=== PATIENT | male | born 1980 | race Caucasian/White ===

== ENCOUNTER 2017-03-04 17:18 | Emergency (ER) | payer SELFPAY ==
[2017-03-04 17:48] VITALS: BP 134/81
--- NOTE | 2017-03-04 19:23 | ER Document Report ---
ED Medical Screen (RME) - General Chief Complaint: Arm Problem Stated Complaint: RIGHT ARM PAIN W/ SWELLING Time Seen by Provider: 03/04/17 19:20 Mode of Arrival: Ambulatory Information source: Patient Notes: 36-year-old male presents to ED for swelling right arm states this started 3 days when he used heroin last in the right arm. Says he has been feeling sick nauseated stomach hurting no fever but feels like he does when he has an infection. He does have a swollen tender area to the right upper arm where he last injection himself thinks he might have missed the pain. He states he was "clean that he fell off the wagon " I have greeted and performed a rapid initial assessment of this patient. A comprehensive ED assessment and evaluation of the patient, analysis of test results and completion of medical decision making process will be conducted by an additional ED providers. TRAVEL OUTSIDE OF THE [place] IN LAST 30 DAYS: No - Related Data Allergies/Adverse Reactions: Penicillins Allergy (Verified 03/04/17 17:44) Past Medical History - Social History Chew tobacco use (# tins/day): No Frequency of alcohol use: None Drug Abuse: Heroin, Prescription drugs Renal/ Medical History: Denies: Hx Peritoneal Dialysis Physical Exam - Vital signs Vitals: Temp Pulse Resp BP Pulse Ox 98.8 F 78 18 134/81 H 98 03/04/17 17:45 03/04/17 17:45 03/04/17 17:45 03/04/17 17:45 03/04/17 17:45 Course - Vital Signs Vital signs: Temp Pulse Resp BP Pulse Ox 98.8 F 78 18 134/81 H 98 03/04/17 17:45 03/04/17 17:45 03/04/17 17:45 03/04/17 17:45 03/04/17 17:45
[2017-03-04 20:03] LABS: ABSOLUTE BASOPHILS # (AUTO) 0.1 10^3/uL (0.0-0.2); ABSOLUTE EOSINOPHILS # (AUTO) 0.2 10^3/uL (0.0-0.6); ABSOLUTE LYMPHOCYTES (AUTO) 2.6 10^3/uL (0.5-4.7); ABSOLUTE MONOCYTES (AUTO) 0.6 10^3/uL (0.1-1.4); ABSOLUTE NEUT (AUTO) 7.6 10^3/uL (1.7-8.2); BASOPHILS % (AUTO) 0.8 % (0-2); EOSINOPHILS % (AUTO) 1.4 % (0-6); HEMATOCRIT 45.7 % (37.9-51.0); HGB HCT DIFFERENCE -0.7; LYMPHOCYTES % (AUTO) 23.6 % (13-45); MEAN CORPUSCULAR HEMOGLOBIN 30.3 pg (27.0-33.4); MEAN CORPUSCULAR HGB CONC 32.8 g/dL (32.0-36.0); MEAN CORPUSCULAR VOLUME 92 fl (80-97); MONOCYTES % (AUTO) 5.1 % (3-13); RED BLOOD COUNT 4.95 10^6/uL (4.35-5.55); SEGMENTED NEUTROPHILS % (AUTO) 69.1 % (42-78); WHITE BLOOD COUNT 11.1 10^3/uL (4.0-10.5)
[2017-03-04 20:28] LABS: APPEARANCE,URINE CLEAR; BILIRUBIN,URINE NEGATIVE (NEGATIVE); GLUCOSE, URINE NEGATIVE (NEGATIVE); KETONES,URINE NEGATIVE (NEGATIVE); LEUKOCYTE ESTERASE,URINE NEGATIVE (NEGATIVE); NITRITE,URINE NEGATIVE (NEGATIVE); PROTEIN,URINE NEGATIVE (NEGATIVE); URINE SPECIFIC GRAVITY 1.003; UROBILINOGEN,URINE NEGATIVE mg/dL (<2.0)
[2017-03-04 20:29] LABS: ALANINE AMINOTRANSFERASE 85 U/L (21-72); ALBUMIN 4.8 g/dL (3.5-5.0); ALKALINE PHOSPHATASE 70 U/L (38-126); ANION GAP 12 (5-19); ASPARTATE AMINO TRANSFERASE 53 U/L (17-59); BILIRUBIN,DIRECT 0.4 mg/dL (0.0-0.4); BILIRUBIN,TOTAL 0.6 mg/dL (0.2-1.3); BLOOD UREA NITROGEN 13 mg/dL (7-20); CALCIUM 9.6 mg/dL (8.4-10.2); CARBON DIOXIDE 28 mmol/L (22-30); CHLORIDE 100 mmol/L (98-107); CREATININE RESULT 0.84 mg/dL (0.52-1.25); GLUCOSE 96 mg/dL (75-110); POTASSIUM 4.4 mmol/L (3.6-5.0); SODIUM 139.9 mmol/L (137-145); TOTAL PROTEIN 8.2 g/dL (6.3-8.2)
[2017-03-04 20:44] LABS: URINE BARBITURATES SCREEN NEGATIVE; URINE METHADONE SCREEN NEGATIVE; URINE OPIATES LOW UNCONFIRMED POSITIVE; URINE PHENCYCLIDINE SCREEN NEGATIVE
--- NOTE | 2017-03-04 22:16 | ER Document Report ---
ED General - General Mode of Arrival: Ambulatory TRAVEL OUTSIDE OF THE [place] IN LAST 30 DAYS: No <EMILY EVERETT - Last Filed: 03/05/17 04:04> <RONNELL ZAMORA - Last Filed: 03/05/17 04:29> - General Chief Complaint: Arm Problem Stated Complaint: RIGHT ARM PAIN W/ SWELLING Time Seen by Provider: 03/04/17 19:20 Notes: Patient is a 36 year old male presenting to the emergency department for a problem to his right upper extremity. Patient was injecting heroine to this arm on Saturday during a relapse. Patient states he did heroine x1 year and then was clean x3 years until Saturday. Patient states his arm is red, hot, painful, and somewhat swollen. Patient also complains of some chills, shakes, nausea, and abdominal pain. Patient denies any use of pills or EtOH. Patient is allergic to penicillin. (EMILY EVERETT) - Related Data Allergies/Adverse Reactions: Penicillins Allergy (Verified 03/04/17 17:44) Past Medical History - General Information source: Patient - Social History Smoking Status: Current Every Day Smoker Chew tobacco use (# tins/day): No Frequency of alcohol use: None Drug Abuse: Heroin, Prescription drugs Family History: None Patient has suicidal ideation: No Patient has homicidal ideation: No Renal/ Medical History: Denies: Hx Peritoneal Dialysis <EMILY EVERETT - Last Filed: 03/05/17 04:04> Review of Systems - Review of Systems Constitutional: See HPI EENT: No symptoms reported Cardiovascular: No symptoms reported Respiratory: No symptoms reported Gastrointestinal: No symptoms reported Genitourinary: No symptoms reported Male Genitourinary: No symptoms reported Musculoskeletal: See HPI Skin: No symptoms reported Hematologic/Lymphatic: No symptoms reported Neurological/Psychological: See HPI -: Yes All other systems reviewed and negative <EMILY EVERETT - Last Filed: 03/05/17 04:04> Physical Exam - Vital signs Interpretation: Normal <EMILY EVERETT - Last Filed: 03/05/17 04:04> <RONNELL ZAMORA - Last Filed: 03/05/17 04:29> - Vital signs Vitals: Temp Pulse Resp BP Pulse Ox 98.8 F 78 18 134/81 H 98 03/04/17 17:45 03/04/17 17:45 03/04/17 17:45 03/04/17 17:45 03/04/17 17:45 - Notes Notes: GENERAL: Alert, interacts well. Mild distress. HEAD: Normocephalic, atraumatic. EYES: Appear normal. Pupils equal, round, and reactive to light. ENT: Moist mucus membranes, tongue midline. NECK: Full range of motion. Supple. Trachea midline. LUNGS: Clear to auscultation bilaterally, no wheezes, rales, or rhonchi. No respiratory distress. HEART: Regular rate and rhythm. No murmurs, gallops, or rubs. ABDOMEN: Soft, non-tender. Non-distended. Normal bowel sounds. EXTREMITIES: Moves all 4 extremities spontaneously. Normal strength. No tenderness to the right forearm, warm to touch. NEUROLOGICAL: Alert and oriented x3. Normal speech. No focal neurological deficits. GSC 15. PSYCH: Normal affect, normal mood. SKIN: Warm, dry, normal turgor. (EMILY EVERETT) Course - Laboratory Result Diagrams: 03/04/17 19:50 03/04/17 19:50 - Consults Dr. Roberts Time consulted: 00:30 <EMILY EVERETT - Last Filed: 03/05/17 04:04> - Laboratory Result Diagrams: 03/04/17 19:50 03/04/17 19:50 <RONNELL ZAMORA - Last Filed: 03/05/17 04:29> - Re-evaluation Re-evalutation: 03/05/17 01:19 Patient presents emerged, red hot swollen arm systemically feels sick like he is going to throw up and body aches and fever. He last used heroin reinjected into that right forearm on Saturday. He says he does not feel like he is having any withdrawal symptoms no seizures no tachycardia her right arm is severely swollen cellulitic in nature no crepitus necrosis good pulses and perfusion IV CT does not show any abscess or cellulitis.. Therefore I did not do a surgical consultation did IV antibiotics update his tetanus spoke with Dr. Roberts and admit for further inpatient treatment of cellulitis. 03/05/17 01:24 03/05/17 01:36 Nurse stated patient went running out of his room bolted in the lobby security saw him getting into a vehicle. We were able to ascertain going back into the room that he had pulled the IV out before he left. (RONNELL ZAMORA) - Vital Signs Vital signs: Temp Pulse Resp BP Pulse Ox 98.8 F 78 18 134/81 H 98 03/04/17 17:45 03/04/17 17:45 03/04/17 17:45 03/04/17 17:45 03/04/17 17:45 - Laboratory Laboratory results interpreted by me: 03/04/17 03/04/17 19:50 19:50 WBC 11.1 H ALT 85 H - Consults Dr. Roberts Reason for consultation: 03/05/2017 00:[address] Roberts for possible admission; he will call back. 03/05/17 01:[address] Roberts, he took another admission and will call back when he is ready to take this admission. (EMILY EVERETT) Discharge <EMILY EVERETT - Last Filed: 03/05/17 04:04> - Discharge Admitting Provider: Hospitalist Unit Admitted: Medical Floor <RONNELL ZAMORA - Last Filed: 03/05/17 04:29> - Discharge Clinical Impression: acute cellulitis forearm, heroin usuage, elopement Condition: Stable Disposition: ELOPED Scribe Attestation: 03/05/17 01:19 I personally performed the services described in the documentation reviewed the documentation recorded by my scribe in my presence and it accurately and completely records my words and actions (RONNELL ZAMORA) Scribe Documentation - Scribe Written by Scribe:: Edy Lima 03/05/17 1:13 acting as scribe for :: Pawan <EMILY EVERETT - Last Filed: 03/05/17 04:04>
[2017-03-04] MEDS ORDERED: CLINDAMYCIN PHOSPHATE INJ 300 MG/2 ML SDV IM ONE (22:18)
--- NOTE | 2017-03-05 00:13 | RADIOLOGY REPORT (SQ) ---
EXAM DESCRIPTION: CT RT UPPER EXTREMITY WITH COMPLETED DATE/TIME: 03/04/2017 11:54 pm REASON FOR STUDY: heroin injection rule out abscess COMPARISON: None. TECHNIQUE: Axial imaging performed through the right upper extremity with contrast and with reformat alma coronal and sagittal imaging windowed for bone and soft tissues. Images saved to PACS. 3D IMAGING: Were 3D images as MIP, SSD, or volume rendering performed at the work station? No. All CT scanners at this facility use dose modulation, iterative reconstruction, and/or weight based d osing when appropriate to reduce radiation dose to as low as reasonably achievable (ALARA). [facility]: Dose Right [facility]: CareDose [facility]: Dose Right [facility]: Teradose 4D [facility]: [email or web address] CONTRAST DOSE: 76 mL Isovue 370. RENAL FUNCTION: BUN 13 creatinine 0.84. LIMITATIONS: None. RADIATION DOSE: Up-to-date CT equipment and radiation dose reduction techniques were employed. CTDIv ol: 2.6 mGy. DLP: 73 mGy-cm. mGy. FINDINGS: SOFT TISSUES: There is diffuse edema and fluid throughout the subcutaneous fatty tissues o f the forearm. A focal fluid collection is not present. BONES: No acute fracture. No dislocation. No bony lesions. MINERALIZATION: Normal. OTHER: No other significant finding. IMPRESSION: DIFFUSE EDEMA/INFLAMMATION THROUGHOUT THE SUBCUTANEOUS FATTY TISSUES OF THE FOREARM. DI FFUSE FLUID IS PRESENT ALTHOUGH A DISCRETE FOCAL ABSCESS IS NOT IDENTIFIED. TECHNICAL DOCUMENTATION: JOB ID: [id number] Quality ID # [id number]: Final reports with documentation of one or more dose reduction techniques (e.g., Au tomated exposure control, adjustment of the mA and/or kV according to patient size, use of iterative reconstruction technique) 2010 [employer]- All Rights Reserved
[2017-03-05] MEDS ORDERED: CLINDAMYCIN PHOSPHATE INJ 300 MG/2 ML SDV IV ONE (00:57)
[2017-03-05] MEDS ORDERED: TETANUS IMMUNE GLOBULIN INJ/PF 250 UNIT DISP.SYRIN IM ONE (01:27)
--- NOTE | 2017-03-05 09:02 | Progress Note ---
Provider Note Provider Note: March 05, 2017: 1:53 AM, I was notified by telephone by emergency room charge nurse Preethi that patient had already physically left the emergency room and had left in a vehicle. This occurred approximately 1:36 AM. Emergency room physician's note reviewed. Again, prior to my ever seeing the patient or being notified that he was leaving the ER, he had already physically left the emergency room and had left in a reported hurry in a vehicle.
== END 2017-03-05 01:43 | disposition left against medical advice (07) ==
LOC: ER 17:18 → EH 03-05 01:29 → UNDOADMIN 03-05 01:29 → ER 03-05 01:43 → UNDODISIN 03-05 02:02
DX: L03.113 Cellulitis of right upper limb (principal); F19.90 Other psychoactive substance use, unspecified, uncomplicated; M79.601 Pain in right arm; F17.200 Nicotine dependence, unspecified, uncomplicated; R11.0 Nausea; M79.1 Myalgia; R50.9 Fever, unspecified; Z88.0 Allergy status to penicillin
CPT/HCPCS: 36415; 80053; 80307; 81001; 85025; 87040; 87077; 99281

== ENCOUNTER 2017-03-05 15:18 | Inpatient (IN) | payer OTHER ==
[2017-03-05] MEDS ORDERED: OXYCODONE-ACETAMINOPHEN 5-325 MG TABLET PO ONE (15:53)
--- NOTE | 2017-03-05 15:54 | ER Document Report ---
ED Medical Screen (RME) - General Chief Complaint: Arm Problem Stated Complaint: ABSCESS/RIGHT ARM Time Seen by Provider: 03/05/17 15:51 Information source: Patient Notes: Right arm pain and swelling from an injection site according to the patient starting Saturday. He was seen here yesterday supposedly and had a CT scan of his arm performed. He states he did not wait for the results as he had an appointment he had get to. Patient states that he was told to try to admit him yesterday. He denies any fevers or vomiting. TRAVEL OUTSIDE OF THE [place] IN LAST 30 DAYS: No - Related Data Allergies/Adverse Reactions: Penicillins Allergy (Verified 03/05/17 15:21) Past Medical History Renal/ Medical History: Denies: Hx Peritoneal Dialysis Physical Exam - Vital signs Vitals: Temp Pulse Resp BP Pulse Ox 98.5 F 89 18 120/72 96 03/05/17 15:22 03/05/17 15:22 03/05/17 15:22 03/05/17 15:22 03/05/17 15:22 Course - Vital Signs Vital signs: Temp Pulse Resp BP Pulse Ox 98.5 F 89 18 120/72 96 03/05/17 15:22 03/05/17 15:22 03/05/17 15:22 03/05/17 15:22 03/05/17 15:22
[2017-03-05] MEDS ORDERED: VANCOMYCIN HCL INJ 1000 MG VIAL IV ONE (15:55)
--- NOTE | 2017-03-05 17:26 | ER Document Report ---
ED Extremity Problem, Upper - General Mode of Arrival: Ambulatory Information source: Patient TRAVEL OUTSIDE OF THE [place] IN LAST 30 DAYS: No - HPI Similar symptoms previously: Yes Recently seen / treated by doctor: Yes - came last night for this, LWBS <CALE WEBER - Last Filed: 03/05/17 22:21> <BAM DOHERTY - Last Filed: 03/05/17 23:29> - General Chief Complaint: Arm Problem Stated Complaint: ABSCESS/RIGHT ARM Time Seen by Provider: 03/05/17 15:51 Notes: Patient is a 36-year-old male that presents to the emergency department today with complaints of an abscess to his right arm. Patient states he is an IV drug user, and he states he has been injecting heroin in this area. Patient denies any elbow pain or trauma to the area. (CALE WEBER) - Related Data Allergies/Adverse Reactions: Penicillins Allergy (Verified 03/05/17 15:21) Home Medications: Current Home Medications No Home Medications 03/05/17 [History] Past Medical History - General Information source: Patient - Social History Smoking Status: Current Every Day Smoker Cigarette use (# per day): Yes Frequency of alcohol use: None Drug Abuse: Heroin Lives with: Family Family History: Reviewed & Not Pertinent Patient has suicidal ideation: No Patient has homicidal ideation: No - Medical History Medical History: Negative Past Surgical History: Reports: Hx Orthopedic Surgery - Right hand tendon sx <CALE WEBRE - Last Filed: 03/05/17 22:21> Review of Systems - Review of Systems Constitutional: No symptoms reported EENT: No symptoms reported Cardiovascular: No symptoms reported Respiratory: No symptoms reported Gastrointestinal: No symptoms reported Genitourinary: No symptoms reported Male Genitourinary: No symptoms reported Musculoskeletal: See HPI, Other - right upper extremity swelling, and elbow pain Skin: No symptoms reported Hematologic/Lymphatic: No symptoms reported Neurological/Psychological: No symptoms reported -: Yes All other systems reviewed and negative <CALE WEBER - Last Filed: 03/05/17 22:21> Physical Exam <CALE WEBER - Last Filed: 03/05/17 22:21> <BAM DOHERTY - Last Filed: 03/05/17 23:29> - Vital signs Vitals: Temp Pulse Resp BP Pulse Ox 98.5 F 89 18 120/72 96 03/05/17 15:22 03/05/17 15:22 03/05/17 15:22 03/05/17 15:22 03/05/17 15:22 - Notes Notes: Physical Exam: General: Alert, appears well. HEENT: Normocephalic. Atraumatic. PERRL. Extraocular movements intact. Oropharynx clear. Neck: Supple. Non-tender. Respiratory: No respiratory distress. Clear and equal breath sounds bilaterally. Cardiovascular: Regular rate and rhythm. Abdominal: Normal Inspection. Non-tender. No distension. Normal Bowel Sounds. Back: Non-tender. No deformity or step off. Extremities: Moves all four extremities. Upper extremities: Swelling, induration, and tenderness with palpation to ulnar portion of right elbow. Full ROM of elbow and wrist . Lower extremities: Normal inspection. No edema. Normal ROM. Neurological: Normal cognition. AAOx4. Normal speech. Psychological: Normal affect. Normal Mood. Skin: See upper extremity exam (CALE WEBER) Course - Laboratory Result Diagrams: 03/05/17 18:15 03/05/17 18:15 <CALE WEBER - Last Filed: 03/05/17 22:21> - Laboratory Result Diagrams: 03/05/17 18:15 03/05/17 18:15 - Diagnostic Test Radiology reviewed: Reports reviewed <BAM DOHERTY - Last Filed: 03/05/17 23:29> - Re-evaluation Re-evalutation: Patient is a 36-year-old male who comes in complaining of arm pain. Patient has a area of induration with surrounding cellulitis. Surgery has been consulted. Will be admitted for IV antibiotics and probable drainage. No acute findings on CT from last night. Patient is agreeable to this plan. Patient had poor veins peripherally. EJ placed on the right side. Stable at time of admission. (BAM DOHERTY) - Vital Signs Vital signs: Temp Pulse Resp BP Pulse Ox 98.2 F 89 16 124/68 100 03/05/17 22:35 03/05/17 22:35 03/05/17 22:35 03/05/17 22:35 03/05/17 22:35 - Laboratory Laboratory results interpreted by me: 03/05/17 18:15 Carbon Dioxide 31 H Discharge <CALE WEBER - Last Filed: 03/05/17 22:21> - Discharge Admitting Provider: Surgicalist - [facility] Unit Admitted: Surgical Floor <BAM DOHERTY - Last Filed: 03/05/17 23:29> - Discharge Clinical Impression: Right arm cellulitis Condition: Stable Disposition: ADMITTED INPATIENT Scribe Attestation: 03/05/17 23:29 I personally performed the services described in the documentation, reviewed and edited the documentation which was dictated to the scribe in my presence, and it accurately records my words and actions. (BAM DOHERTY) Scribe Documentation - Scribe Written by Edy:: Edy Montiel, 03/05/2017 194 acting as scribe for :: Ara <CALE WEBER - Last Filed: 03/05/17 22:21>
[2017-03-05] MEDS ORDERED: CEFEPIME 1 GM/D5W RTU 50 ML IV ONE (17:54)
[2017-03-05 18:27] LABS: ABSOLUTE BASOPHILS # (AUTO) 0.1 10^3/uL (0.0-0.2); ABSOLUTE EOSINOPHILS # (AUTO) 0.3 10^3/uL (0.0-0.6); ABSOLUTE LYMPHOCYTES (AUTO) 2.4 10^3/uL (0.5-4.7); ABSOLUTE MONOCYTES (AUTO) 0.5 10^3/uL (0.1-1.4); ABSOLUTE NEUT (AUTO) 5.7 10^3/uL (1.7-8.2); BASOPHILS % (AUTO) 0.7 % (0-2); EOSINOPHILS % (AUTO) 3.4 % (0-6); HEMATOCRIT 41.2 % (37.9-51.0); HGB HCT DIFFERENCE 0.8; LYMPHOCYTES % (AUTO) 26.9 % (13-45); MEAN CORPUSCULAR HEMOGLOBIN 30.9 pg (27.0-33.4); MEAN CORPUSCULAR VOLUME 91 fl (80-97); MONOCYTES % (AUTO) 6.1 % (3-13); RED BLOOD COUNT 4.53 10^6/uL (4.35-5.55); RED CELL DISTRIBUTION WIDTH 12.9 % (11.5-14.0); SEGMENTED NEUTROPHILS % (AUTO) 62.9 % (42-78)
[2017-03-05] MEDS ORDERED: LEVOFLOXACIN 750 MG/D5W RTU 150 ML IV ONE (18:36)
[2017-03-05] MEDS ORDERED: NICOTINE 21 MG/24 HR PATCH.TD24 TD ONE (18:37)
[2017-03-05 18:43] LABS: PARTIAL THROMBOPLASTIN TIME 31.9 SEC (23.5-35.8); PROTHROMBIN TIME 12.3 SEC (11.4-15.4)
[2017-03-05 18:47] LABS: ANION GAP 8 (5-19); BLOOD UREA NITROGEN 15 mg/dL (7-20); CALCIUM 9.2 mg/dL (8.4-10.2); CARBON DIOXIDE 31 mmol/L (22-30); CHLORIDE 99 mmol/L (98-107); CREATININE RESULT 0.91 mg/dL (0.52-1.25); GLUCOSE 102 mg/dL (75-110); POTASSIUM 4.4 mmol/L (3.6-5.0); SODIUM 137.6 mmol/L (137-145)
[2017-03-05] MEDS ORDERED: NORMAL SALINE 1000 ML 1,000 ML IV PRN (18:49)
[2017-03-05] MEDS ORDERED: ACETAMINOPHEN 325 MG TABLET PO PRN (18:49)
[2017-03-05] MEDS ORDERED: ONDANSETRON HCL INJ/PF 4 MG/2 ML SDV IV PRN (18:49)
[2017-03-05] MEDS ORDERED: CEFEPIME HCL 1 GM in DEXTROSE 5%-WATER 50 ML IV ONE (19:00)
[2017-03-05 19:35] LABS: APPEARANCE,URINE SLIGHTLY-CLOUDY; BILIRUBIN,URINE NEGATIVE (NEGATIVE); GLUCOSE, URINE NEGATIVE (NEGATIVE); KETONES,URINE TRACE mg/dL (NEGATIVE); LEUKOCYTE ESTERASE,URINE NEGATIVE (NEGATIVE); NITRITE,URINE NEGATIVE (NEGATIVE); PROTEIN,URINE 30 mg/dL (NEGATIVE); URINE SPECIFIC GRAVITY 1.033; UROBILINOGEN,URINE NEGATIVE mg/dL (<2.0)
[2017-03-05 19:49] LABS: URINE BARBITURATES SCREEN NEGATIVE; URINE METHADONE SCREEN NEGATIVE; URINE OPIATES LOW UNCONFIRMED POSITIVE; URINE PHENCYCLIDINE SCREEN NEGATIVE
[2017-03-05] MEDS ORDERED: VANCOMYCIN HCL INJ 1000 MG VIAL IV SCH (20:00)
[2017-03-05] MEDS: FAMOTIDINE INJ/PF 20 MG/2 ML SDV IV SCH (22:45)
[2017-03-06 05:54] LABS: ABSOLUTE EOSINOPHILS # (AUTO) 0.3 10^3/uL (0.0-0.6); ABSOLUTE LYMPHOCYTES (AUTO) 1.4 10^3/uL (0.5-4.7); ABSOLUTE MONOCYTES (AUTO) 0.4 10^3/uL (0.1-1.4); ABSOLUTE NEUT (AUTO) 4.1 10^3/uL (1.7-8.2); BASOPHILS % (AUTO) 0.7 % (0-2); EOSINOPHILS % (AUTO) 4.6 % (0-6); HEMATOCRIT 41.8 % (37.9-51.0); HEMOGLOBIN 14.3 g/dL (13.5-17.0); HGB HCT DIFFERENCE 1.1; LYMPHOCYTES % (AUTO) 22.7 % (13-45); MEAN CORPUSCULAR HGB CONC 34.2 g/dL (32.0-36.0); MEAN CORPUSCULAR VOLUME 91 fl (80-97); MONOCYTES % (AUTO) 6.6 % (3-13); RED BLOOD COUNT 4.61 10^6/uL (4.35-5.55); RED CELL DISTRIBUTION WIDTH 13.5 % (11.5-14.0); SEGMENTED NEUTROPHILS % (AUTO) 65.4 % (42-78); WHITE BLOOD COUNT 6.2 10^3/uL (4.0-10.5)
[2017-03-06 06:18] LABS: ANION GAP 7 (5-19); BLOOD UREA NITROGEN 14 mg/dL (7-20); CARBON DIOXIDE 30 mmol/L (22-30); CHLORIDE 105 mmol/L (98-107); CREATININE RESULT 0.87 mg/dL (0.52-1.25); GLUCOSE 105 mg/dL (75-110); POTASSIUM 4.4 mmol/L (3.6-5.0); SODIUM 142.1 mmol/L (137-145)
--- NOTE | 2017-03-06 07:18 | RADIOLOGY REPORT (SQ) ---
EXAM DESCRIPTION: U/S EXTREMITY NONVASCULAR COMP COMPLETED DATE/TIME: 03/06/2017 7:07 am REASON FOR STUDY: cellulitis right forearm; r/o abscess or fluid col COMPARISON: None. TECHNIQUE: Dynamic and static grayscale images acquired of the localized site of clinical concern an d recorded on PACS. Additional selected color Doppler and spectral images recorded. SITE OF CONCERN: Right forearm. LIMITATIONS: None. FINDINGS: SKIN AND SUBCUTANEOUS TISSUES: Marked edema in the subcutaneous tissues with heterogenous echogenicity and increased vascularity. Small subcutaneous fluid collection measuring 0.3 x 0.8 x 1. 3 cm. DEEP SOFT TISSUES/MUSCLES: No masses. No fluid collections. No edema. OTHER: No other significant finding. IMPRESSION: MARKED EDEMA AND HYPERVASCULARITY IN THE SUBCUTANEOUS SOFT TISSUES CONSISTENT WITH INFEC TION. SMALL FLUID COLLECTION PRESENT WHICH COULD REPRESENT AN EARLY ABSCESS. TECHNICAL DOCUMENTATION: JOB ID: [id number] [employer]- All Rights Reserved
[2017-03-06] MEDS ORDERED: PROPOFOL INJ 200 MG/20 ML VIAL IV ONE (09:46)
[2017-03-06] MEDS ORDERED: FENTANYL CITRATE INJ/PF 100 MCG/2 ML AMPUL ONE (09:46)
[2017-03-06] MEDS ORDERED: MIDAZOLAM 2 MG/2 ML INJ ONE (09:46)
[2017-03-06] MEDS ORDERED: NICOTINE 21 MG/24 HR PATCH.TD24 TD SCH (10:00)
[2017-03-06] MEDS ORDERED: BUPIVACAINE HCL 0.25 % INJ/PF (2.5 MG/1 ML) 30 ML VIAL ONE (10:41)
[2017-03-06] MEDS ORDERED: MEPERIDINE HCL/PF INJ 25 MG/1 ML DISP.SYRIN IV PRN (10:46)
[2017-03-06] MEDS ORDERED: FENTANYL CITRATE INJ/PF 100 MCG/2 ML AMPUL IV PRN ×3 (10:46)
[2017-03-06] MEDS ORDERED: OXYCODONE-ACETAMINOPHEN 5-325 MG TABLET PO PRN ×2 (10:46)
[2017-03-06] MEDS ORDERED: PROMETHAZINE HCL INJ 25 MG/1 ML VIAL IV PRN ×2 (10:46)
[2017-03-06] MEDS ORDERED: MORPHINE SULFATE 10 MG/ML INJ IV PRN ×2 (10:46→14:52)
[2017-03-06] MEDS ORDERED: DIPHENHYDRAMINE HCL 50 MG/ML VIAL IV PRN (10:46)
[2017-03-06] MEDS ORDERED: BUPIVACAINE HCL 0.25% /EPINEPHRINE INJ/PF 30 ML SDV ONE (10:53)
[2017-03-06] MEDS: FAMOTIDINE INJ/PF 20 MG/2 ML SDV IV SCH (14:40)
--- NOTE | 2017-03-06 14:44 | Operative Report ---
Operative Report Operative Report: left forearm abscess I&D PREOPERATIVE DIAGNOSIS: Left forearm abscess POSTOPERATIVE DIAGNOSIS: same OPERATION: Incision and drainage of left forearm abscess SURGEON: ESTEE BOB ANESTHESIA: Moderate Sedation - plus local COMPLICATIONS: none ESTIMATED BLOOD LOSS: minimal INTRAOPERATIVE FINDINGS: small abscess cavity PROCEDURE: see dictation
[2017-03-06] MEDS ORDERED: ACETAMINOPHEN 325 MG TABLET PO PRN (15:02)
[2017-03-06] MEDS ORDERED: NORMAL SALINE 1000 ML 1,000 ML IV PRN (15:03)
--- NOTE | 2017-03-06 16:16 | OPERATIVE REPORT E ---
Operative Report NAME: ZAKI THOMPSON : 1980 AGE: 36Y DATE OF SURGERY: ROOM: 425 PREOPERATIVE DIAGNOSIS: Right forearm dorsal aspect abscess. POSTOPERATIVE DIAGNOSIS: Right forearm dorsal aspect abscess. OPERATION: Incision and drainage of right forearm dorsal aspect abscess. SURGEON: ESTEE BOB M.D. SOFTWARE DEVELOPMENT COORDINATOR: None. BLEEDING: Minimal. ANESTHESIA: Intravenous sedation plus local, about 20 mL of 0.5% Marcaine with epinephrine. INDICATION: A healthy 36-year-old heroine IV drug abuser who injected heroin subcutaneously in the upper third of the dorsal aspect of his right forearm yesterday. Patient was seen in the emergency room. A CAT scan of the left forearm was done revealing no abscess. An ultrasound was repeated today revealing the presence of subcutaneous fluid collection. Patient was taken to surgery to undergo incision and drainage of the fluid collection, representing a possible abscess of the right forearm. The procedures, benefits, and complications were discussed with the patient. He understood all the above. PROCEDURE: Once in the operating room, the patient was placed in the supine position. IV sedation was provided by the anesthesiologist. The dorsal aspect of the proximal one-third of the right forearm was prepped and draped in the usual fashion. A longitudinal incision was made. The area was infiltrated with 20 mL of 0.5% Marcaine with epinephrine. A longitudinal incision was made with a #10 blade, deepened with the Bovie. A small subcutaneous cavity was identified. Fluid was obtained, and this was sent for culture (aerobic, anaerobic) and gram stain. The subcutaneous cavity was then enlarged with a finger with a sweeping, circular motion. The area was then irrigated with about 400 mL of warm normal saline and packed with triple antibiotic ointment and quarter-inch packing strip. Sterile dressings were applied. The patient tolerated the procedure well and transferred to the recovery room in safe, satisfactory condition. DICTATING PHYSICIAN: ESTEE BOB M.D. [id number] PHY#: [id number] ID: [id number] JOB#: [id number] ACCT: [id number] cc:ESTEE BOB M.D. > [facility]
[2017-03-06] MEDS ORDERED: LORAZEPAM INJ 2 MG/1 ML VIAL IV PRN (17:52)
[2017-03-06] MEDS ORDERED: LEVOFLOXACIN 500 MG/D5W RTU 500 MG/100 ML RTUPB IV SCH (18:00)
[2017-03-06 18:08] VITALS: BP 111/62
[2017-03-07] MEDS ORDERED: HEPARIN SOD (PORCINE) 5,000 UNIT/ML 1 ML SYRINGE SUBCUT SCH (10:00)
--- NOTE | 2017-05-01 10:03 | PDOC H&P ---
History of Present Illness Admission Date/PCP: 03/05/17 Patient complains of: right forearm pain and swelling History of Present Illness: ZAKI THOMPSON is a 36 year old male This is a healthy 36 y/o WM heroin user who could not find a suitable vein in his forearms, so decided to inject the heroin under his skin yesterday. He presented to the ER last night complaining of pain, swelling, and redness of the proximal forearm, dorsal aspect. A CT scan of the area was done last night , but the patient became impatient after the CT scan and left AMA. The patient returns with the above symptoms to the ER. Past Medical History Pulmonary Medical History: Reports: Other - history of IVDA Past Surgical History Past Surgical History: Reports: None, Orthopedic Surgery - Right hand tendon sx Social History Smoking Status: Current Every Day Smoker Cigarettes Packs Per Day: 0.5 Frequency of Alcohol Use: Rare Drugs: Heroin - reports not to have used heroin for the past 3 years, but he relapsed last night Family History Family History: None, Reviewed & Not Pertinent Parental Family History Reviewed: Yes - n/a Children Family History Reviewed: Yes - n/a Sibling(s) Family History Reviewed.: Yes - n/a Medication/Allergy Home Medications: No Home Medications 03/05/17 Allergies/Adverse Reactions: Penicillins Allergy (Verified 03/08/17 14:51) Physical Exam Vital Signs: Temp Pulse Resp BP Pulse Ox 98.5 F 89 18 120/72 96 03/05/17 15:22 03/05/17 15:22 03/05/17 15:22 03/05/17 15:22 03/05/17 15:22 Intake & Output 03/04/17 03/05/17 03/06/17 06:59 06:59 06:59 Weight 86.1 kg General appearance: PRESENT: no acute distress Head exam: PRESENT: atraumatic Eye exam: PRESENT: EOMI Neck exam: PRESENT: full ROM Respiratory exam: PRESENT: clear to auscultation carlita Cardiovascular exam: PRESENT: RRR GI/Abdominal exam: PRESENT: normal bowel sounds, soft Rectal exam: PRESENT: deferred Extremities exam: PRESENT: other - right upper extermity= right forearm presents with swelling of the proximal 1/3 of the dorsal / medial aspect, redness, mild tenderness, normal ROM, no sensory deficits, normal palpable pulses of radial and ulnar artery Skin exam: PRESENT: other - as above RUE Results Laboratory Results: Right forearm CT scan: no kwabena abscess or drainable fluid collection Status: Image reviewed by me - after Radiologist written report Assessment & Plan - Plan Summary Plan Summary: Assessment: Right forearm self injection of heroin Cellulitis right arm No drainable fluid collection on CT scan P.E. significant for cellulitis of right forearm Plan: admit NPO after midnight repeat blood work in AM US right forearm in AM [facility] IVF
--- NOTE | 2017-05-01 10:10 | Operative Report ---
Operative Report PREOPERATIVE DIAGNOSIS: Left forearm abscess POSTOPERATIVE DIAGNOSIS: same OPERATION: Incision and drainage of left forearm abscess SURGEON: ESTEE BOB ANESTHESIA: LMAC - plus local ESTIMATED BLOOD LOSS: minimal INTRAOPERATIVE FINDINGS: small abscess cavity PROCEDURE: The procedure was done n the OR, the patient was under IV sedation, the left forearm prepped and draped, local anestehtic was injected in the area of swelling, an incision was made in the area of most swelling, pus was obtained and sent for culture. The area was irrigated, packed, covered with sterile dressings, and tape. The patient tolerated the procedure well and transferred to the recovery room in satisfactory conditions.
--- NOTE | 2017-05-03 02:23 | PDOC DISCHARGE SUMMARY ---
Discharge Summary (SDC) - Discharge Final Diagnosis: Left forearm abscess Date of Surgery: 03/06/17 Discharge Date: 03/06/17 Condition: Good Forms: Discharge POC-Adult Treatment or Instructions: Incision and drainage of left forearm abscess Remove bandages daily, irrigate wound with normal saline, reapply bandages F/u with surgery office in 1 week Prescriptions: Levofloxacin [Levaquin 500 mg Tablet] 500 mg PO DAILY #10 tablet Referrals: JEAN PIERRE GALVIN MD [ACTIVE STAFF] - Respiratory Treatments at Home: Deep Breathing/Coughing Additional Home Respiratory Instructions: n/a Discharge Activity: Activity As Tolerated - keep left forearm at resst x 2 weeks Home Care Assistance: None Needed Report the Following to Your Physician Immediately: Fever over 101 Degrees, Redness, Swelling Other Items to Report to MD: n/a
== END 2017-03-06 19:37 | disposition left against medical advice (07) | DRG 603 ==
LOC: ER 15:18 → EH 18:40 → UNDOADMIN 19:24 → 4S 22:20
PROVIDERS: ADMIT Surgery; ATTEND Surgery
PROC: 0J9G3ZX Drainage of Right Lower Arm Subcutaneous Tissue and Fascia, Percutaneous Approach, Diagnostic (ICD-10-PCS; principal; 2017-03-06 10:15)
DX: L03.113 Cellulitis of right upper limb (principal); F17.210 Nicotine dependence, cigarettes, uncomplicated; Z88.0 Allergy status to penicillin
CPT/HCPCS: 36415; 400; 76881; 80048; 80307; 81001; 85025; 85610; 85730; 87070; 87075; 87077; 87205; 99284; J0692; J1956; J2250; J2270; J2704; J3010; J3370; J3490; J7030; S0028

== ENCOUNTER 2017-03-08 14:47 | Emergency (ER) | payer SELFPAY ==
--- NOTE | 2017-03-08 16:14 | ER Document Report ---
HPI - HPI Patient complains to provider of: wound recheck Onset: Other - 5 days Onset/Duration: Better Quality of pain: Achy Pain Level: 3 Context: Patient had a surgical incision and drainage procedure on an abscess 4 days ago after his he developed an abscess after attempting to inject iv heroin. Patient states that he left the hospital AMA but noticed he has packing in the wound and is here to have the wound redressed. Patient states that arm pain is improved, swelling is improved and the redness has resolved. Associated Symptoms: Other - Wound recheck. denies: Fever Exacerbated by: Denies Relieved by: Denies Similar symptoms previously: No Recently seen / treated by doctor: Yes - ROS ROS below otherwise negative: Yes Systems Reviewed and Negative: Yes All other systems reviewed and negative - CONSTITUTIONAL Constitutional: DENIES: Fever, Chills - CARDIOVASCULAR Cardiovascular: DENIES: Chest pain - MUSCULOSKELETAL Musculoskeletal: REPORTS: Extremity pain - Forearm - DERM Skin Color: Normal Notes: Surgical incision site to right forearm Past Medical History - General Information source: Patient - Social History Smoking Status: Current Every Day Smoker Chew tobacco use (# tins/day): No Frequency of alcohol use: None Drug Abuse: Heroin, Other Occupation: client service associate Family History: Reviewed & Not Pertinent - Medical History Medical History: Negative Renal/ Medical History: Denies: Hx Peritoneal Dialysis Psychiatric Medical History: Denies: Hx Depression Past Surgical History: Reports: Hx Orthopedic Surgery - Right hand tendon sx - Immunizations Hx Diphtheria, Pertussis, Tetanus Vaccination: Yes Vertical Provider Document - CONSTITUTIONAL Agree With Documented VS: Yes Exam Limitations: No Limitations General Appearance: WD/WN, No Apparent Distress - INFECTION CONTROL TRAVEL OUTSIDE OF THE [place] IN LAST 30 DAYS: No - HEENT HEENT: Atraumatic, Normocephalic - NECK Neck: Normal Inspection - RESPIRATORY Respiratory: Breath Sounds Normal, No Respiratory Distress O2 Sat by Pulse Oximetry: 96 - CARDIOVASCULAR Cardiovascular: Regular Rate, Regular Rhythm, No Murmur Pulses: Normal: Radial - MUSCULOSKELETAL/EXTREMETIES Musculoskeletal/Extremeties: MAEW, Edema - trace edema to r forearm - NEURO Level of Consciousness: Awake, Alert, Appropriate Motor/Sensory: No Motor Deficit - DERM Integumentary: Warm, Dry, Laceration - 6 cm surgical incision with packing in place, no surrounding erythema Course - Re-evaluation Re-evalutation: 03/08/17 16:[address] nelson regarding pt presentation, advises dressing change with instructions for wound care to pt. No antibiotics advised given pt's clinic improvement - Vital Signs Vital signs: Temp Pulse Resp BP Pulse Ox 98.3 F 66 18 121/68 96 03/08/17 14:52 03/08/17 14:52 03/08/17 14:52 03/08/17 14:52 03/08/17 14:52 Discharge - Discharge Clinical Impression: Encounter for wound re-check Condition: Stable Disposition: HOME, SELF-CARE Instructions: Abscess ([facility]) Additional Instructions: Return immediately for any new or worsening symptoms Followup with your primary care provider, call tomorrow to make a followup appointment change dressing daily, return for any increased pain, redness, swelling, fever or any other concernes Forms: Return to Work Referrals: Wound Care [Provider Group] - Follow up as needed
[2017-03-08 17:04] VITALS: BP 126/80
== END 2017-03-08 17:04 | disposition home or self-care (01) ==
LOC: ER 14:47
DX: L02.413 Cutaneous abscess of right upper limb (principal)
CPT/HCPCS: 99282

== ENCOUNTER 2018-04-13 13:11 | Emergency (ER) | payer OTHER ==
[2018-04-13 13:31] VITALS: BP 131/77
== END 2018-04-13 14:12 | disposition left against medical advice (07) ==
LOC: ER 13:11
DX: Z53.21 Procedure and treatment not carried out due to patient leaving prior to being seen by health care provider (principal)

== ENCOUNTER 2018-04-20 14:39 | Emergency (ER) | payer SELFPAY ==
[2018-04-20 14:49] VITALS: BP 118/67
--- NOTE | 2018-04-20 16:30 | RADIOLOGY REPORT (SQ) ---
EXAM DESCRIPTION: HAND LEFT 3 VIEWS COMPLETED DATE/TIME: 04/20/2018 4:09 pm REASON FOR STUDY: 5th injury with tub washer COMPARISON: None. EXAM PARAMETERS: NUMBER OF VIEWS: Three views. TECHNIQUE: AP, lateral and oblique radiographic images acquired of the left hand. LIMITATIONS: None. FINDINGS: MINERALIZATION: Normal. BONES: No acute fracture or dislocation. No worrisome bone lesions. JOINTS: No effusions. SOFT TISSUES: No soft tissue swelling. No foreign body. OTHER: No other significant finding. IMPRESSION: NEGATIVE STUDY OF THE LEFT HAND. NO RADIOGRAPHIC EVIDENCE OF ACUTE INJURY. TECHNICAL DOCUMENTATION: JOB ID: [id number] [employer]- All Rights Reserved Reading location - IP/workstation name: [email or web address]
--- NOTE | 2018-04-20 17:11 | ER Document Report ---
ED General - General Chief Complaint: Finger Injury Stated Complaint: FINGER LACERATION Time Seen by Provider: 04/20/18 15:35 TRAVEL OUTSIDE OF THE [place] IN LAST 30 DAYS: No - HPI Patient complains to provider of: Left fifth digit injury Notes: Patient is about 1 week ago injured his left fifth digit due to using a steward dishwasher. Patient states feeling well swallow however has continued to address the with triple antibiotic ointment states he has has numbness and pain in the finger since that time patient denies any fevers chills nausea vomiting diarrhea. - Related Data Allergies/Adverse Reactions: Penicillins Allergy (Verified 04/20/18 14:42) Past Medical History - Social History Smoking Status: Current Every Day Smoker Chew tobacco use (# tins/day): No Frequency of alcohol use: None Drug Abuse: None Family History: Reviewed & Not Pertinent Patient has suicidal ideation: No Patient has homicidal ideation: No Renal/ Medical History: Denies: Hx Peritoneal Dialysis Psychiatric Medical History: Denies: Hx Depression Past Surgical History: Reports: Hx Orthopedic Surgery - Right hand tendon sx - Immunizations Hx Diphtheria, Pertussis, Tetanus Vaccination: Yes Review of Systems - Review of Systems Constitutional: No symptoms reported EENT: No symptoms reported Cardiovascular: No symptoms reported Respiratory: No symptoms reported Gastrointestinal: No symptoms reported Genitourinary: No symptoms reported Male Genitourinary: No symptoms reported Musculoskeletal: Other - hand injury Skin: No symptoms reported Hematologic/Lymphatic: No symptoms reported Neurological/Psychological: No symptoms reported -: Yes All other systems reviewed and negative Physical Exam - Vital signs Vitals: Temp Pulse Resp BP Pulse Ox 97.9 F 81 15 118/67 99 04/20/18 14:46 04/20/18 14:46 04/20/18 14:46 04/20/18 14:46 04/20/18 14:46 Interpretation: Normal - General General appearance: Appears well, Alert - HEENT Head: Normocephalic, Atraumatic Eyes: Normal Pupils: PERRL - Respiratory Respiratory status: No respiratory distress Chest status: Nontender Breath sounds: Normal Chest palpation: Normal - Cardiovascular Rhythm: Regular Heart sounds: Normal auscultation Murmur: No - Abdominal Inspection: Normal Distension: No distension Bowel sounds: Normal Tenderness: Nontender Organomegaly: No organomegaly - Back Back: Normal, Nontender - Extremities General upper extremity: Nontender, Normal color, Normal ROM, Normal temperature. No: Normal inspection - Medial portion at the PCP joint on the left hand fifth digit does show a laceration with some surrounding erythema. Range of motion of the finger is limited due to pain. Refill is intact. Patient states the fingers continues to feel numb General lower extremity: Normal inspection, Nontender, Normal color, Normal ROM , Normal temperature, Normal weight bearing. No: Zayra's sign - Neurological Neuro grossly intact: Yes Cognition: Normal Orientation: AAOx4 Abby Coma Scale Eye Opening: Spontaneous [place] Coma Scale Verbal: Oriented [place] Coma Scale Motor: Obeys Commands [place] Coma Scale Total: 15 Speech: Normal Motor strength normal: LUE, RUE, LLE, RLE Sensory: Normal - Psychological Associated symptoms: Normal affect, Normal mood - Skin Skin Temperature: Warm Skin Moisture: Dry Skin Color: Normal Course - Re-evaluation Re-evalutation: 04/20/18 20:41 X-ray showed no bony abnormality. More likely were patient and the patient's injury occurred he did damage nerve. Due to the erythema and mechanism of injury concerned about possible underlying infection as well. We will start the patient on antibiotics. The discussed with the orthopedic on-call Dr. Burris recommend follow-up in his clinic. - Vital Signs Vital signs: Temp Pulse Resp BP Pulse Ox 97.9 F 81 15 118/67 99 04/20/18 14:46 04/20/18 14:46 04/20/18 14:46 04/20/18 14:46 04/20/18 14:46 Discharge - Discharge Clinical Impression: Left fifth digit injury Instructions: Puncture Wound ([facility]) Additional Instructions: X-rays not show any critical pathology today. The reason you are having numbness of the fingers because of injury to the nerve. I am concerned of possibly developing infection of the wound was structural antibiotic call Keflex. I would highly recommend that you call the orthopedic hand surgeon provided Dr. Burris after the holiday for follow-up evaluation. Return to ER symptoms worsen. Prescriptions: Cephalexin Monohydrate [Keflex 500 mg Capsule] 500 mg PO Q6H 7 Days capsule Forms: Return to Work Referrals: KISHA BURRIS DO [ACTIVE STAFF] - 04/22/18 (call for appointment)
== END 2018-04-20 17:28 | disposition home or self-care (01) ==
LOC: ER 14:39
DX: S61.217A Laceration without foreign body of left little finger without damage to nail, initial encounter (principal); X58.XXXA Exposure to other specified factors, initial encounter; R20.0 Anesthesia of skin; F17.200 Nicotine dependence, unspecified, uncomplicated; Z88.0 Allergy status to penicillin
CPT/HCPCS: 99283